=== PATIENT | female | born 1935 | race Caucasian/White ===

== ENCOUNTER 2019-05-28 14:41 | Inpatient (IN) | payer MEDICARE ==
[2019-05-28] MEDS: Ferrous Sulfate 325 MG TAB PO SCH (18:15)
--- NOTE | 2019-05-28 19:52 | HP ---
PRIMARY CARE PHYSICIAN: Out of town. ORTHO: Dr. Lugo in orthopedic. REASON FOR ADMISSION: [facility] for rehab after recent surgery. HISTORY OF PRESENT ILLNESS: Ms. Lucio is an 84-year-old female, who had a recent right total knee replacement secondary to severe arthritis. The patient reports that she had been having issues with her right knee in a long time and with her last visit to her Orthopedic, she was told her knee has severe arthritis, recommending surgical management. The patient underwent right total knee replacement on 05/25/2019. Postoperative course was complicated with anemia secondary to postoperative blood loss. Per report, her hemoglobin fell to the level of 7.6 on postop day 1. She remained hemodynamically stable and symptom-free. She was started on iron supplement for repletion per report. She was reported to have good pain control from a block that was performed by Anesthesia. The block was removed on postoperative day 2. The patient was maintained on [place] and tramadol for pain control after the block was discontinued. Staff reports that the patient had desaturation of oxygen, which was deemed from [place] use, so she is currently taking tramadol at this time. The patient reports that she tramadol is helping control the pain somewhat. She was instructed to follow up with Ortho in 2 weeks time after the surgery. When evaluated, family consisting of the patient's spouse and daughter were present in the room. The patient was comfortably resting when seen. She reports no other issues at this time. She reports that she has started her physical therapy and occupational therapy postoperatively and had started to walk some. She reports pain mostly on walking. She takes Tramadol prn. PAST MEDICAL HISTORY: 1. Anxiety, depression. 2. Chronic arthritis. 3. Hypertension, dyslipidemia, decreased auditory acuity. 4. Normal nuclear study performed on 02/07/2015, which shows ejection fraction of 51% and a predominantly fixed defect involving the mid to apical anterior wall and no ischemia. 5. History of orthostasis, history of atrial tachycardia, LINQ in situ. 6. History of dry mouth and dry eyes. 7. CAD. 8. Hyperlipidemia. PAST SURGICAL HISTORY: 1. Distant history of appendectomy, cardiac catheterization on 05/19/2015, removal of LINQ implant by Dr. Ortiz. 2. History of syncopal episode. 3. Coronary artery bypass graft surgery. SOCIAL HISTORY: . Denies tobacco use. Denies alcohol or drug use. ALLERGIES: TO [facility] GIVING HER HYPOXIA, LISINOPRIL, METHOCARBAMOL, OMEPRAZOLE, PENICILLIN, RAMIPRIL, AND CODEINE. MEDICATIONS: 1. Aspirin 81 mg p.o. daily. 2. Atorvastatin 20 mg p.o. daily. 3. Calcium carbonate with vitamin D3 of 600/800 mg one tablet p.o. b.i.d. 4. Carboxymethylcellulose sodium 1 to 2 drops right eye t.i.d. 5. Clonazepam 0.5 mg p.o. daily and 1 mg p.o. at bedtime. 6. Ezetimibe 10 mg p.o. at bedtime. 7. Magnesium oxide 500 mg p.o. b.i.d. 8. Restasis 0.1 drop each eye b.i.d. 9. Tramadol 50 mg for mild pain and 100 mg for [id number]-es-rdytmi pain. REVIEW OF SYSTEMS: GENERAL: Reports general weakness. Denies fever, chills, loss of appetite, or fatigue. HEENT: Reports chronic dry eyes. No acute visual changes or hearing changes. RESPIRATORY: No shortness of breath, cough, bloody sputum production, or wheezing. CARDIO: Denies chest pain, dyspnea on exertion, or paroxysmal nocturnal dyspnea. GI: No nausea, vomiting, abdominal pain, diarrhea, or constipation. GENITOURINARY: No dysuria, hematuria, frequency, urgency, or incontinence. MUSCULOSKELETAL: Reports joint pains and swelling as per HPI. NEURO: No focal numbness. No focal weakness. No seizures, tics, or tremors. PSYCH: Reports anxiety/depression and insomnia. No hallucinations. No suicidal thoughts, ideations, or plans. SKIN: No rashes or other additions than postoperative site, no pruritus. PHYSICAL EXAMINATION: VITAL SIGNS: Blood pressure 137/58, pulse 75, temperature 100.8, respirations 16, and O2 sats 93% on room air. GENERAL: The patient is awake, alert, and oriented x3. Not in distress, comfortably lying in bed. HEENT: Normocephalic and atraumatic. PERRL. Intact EOM. Anicteric sclerae. Oral mucosa is moist. Hard of hearing. NECK: Supple. No LAD. Flat JVD. CHEST: Normal excursion. Clear to auscultation bilaterally. CARDIAC: RRR. Normal S1 and S2. No murmurs. ABDOMEN: Flat and soft. Normoactive bowel sounds. Nondistended, nontender. No rebound or guarding. Negative CVA tenderness bilaterally. EXTREMITIES: Right knee is mildly swollen. Postoperative site on the right anterior knee is intact, dry. Sutures are in place. No wound adhesions. No drainage. No exudates. [place] wound erythema and mild swelling were noted. Mild tender to touch. Not warm to touch. No bipedal edema. Peripheral pulses 2+ symmetrically. NEUROLOGIC: Nonfocal. DTRs 2+. Gait unsteady. PSYCH: Appears calm with appropriate demeanor and affect. ASSESSMENT AND PLAN: 1. Severe arthritis, status post right total knee replacement. 2. Anemia secondary to postoperative blood loss with latest hemoglobin of 7.5, hematocrit 26.4, on 05/27/2019 prior to discharge. 3. Deconditioning. 4. General weakness. 5. Unsteady gait. 6. Hypertension, dyslipidemia, anxiety, and depression. LABORATORY DATA: On 05/27/2019, WBC 7.9, hemoglobin 7.5, hematocrit 24.4, and platelets 167. Sodium 139, potassium 4.0, chloride 103, BUN 14, creatinine 0.7 , and GFR 85. PLAN: 1. The patient is admitted to [facility] for rehab. We will refer to PT and OT. 2. Current temperature is mildy elevated, patient is symptom-free. We will closely monitor. We will continue current medications as per list. 3. We will add iron supplement as it is not in the list. 4. I discussed the med reaction between tramadol and Effexor increasing risk of seizures. The patient reported allergy to codeine and intolerance to hydrocodone. She is apparently doing well with tramadol. Benefits outweigh the risks. There was no problem with previous use of tramadol and Effexor. 5. Routine blood work including serial CBC. 6. DVT prophylaxis with compression stockings. 7. Follow up with Dr. Lugo in 2 weeks. Staple removal with Ortho during the followup. 8. Further recommendations depending on the hospital course. CODE STATUS: The patient reports FULL CODE in the presence of her daughter and spouse, who concur stephanie patient's wishes. ESTIMATED LENGTH OF STAY: 2 to 3 weeks. Job ID: [id number] [facility]
[2019-05-28] MEDS: clonazePAM 1 MG TAB PO SCH (20:07)
[2019-05-28] MEDS: Calcium Carbonate + Vit D 1 TAB PO SCH (20:07)
[2019-05-28] MEDS: Ezetimibe 10 MG TAB PO SCH (20:08)
[2019-05-28] MEDS: Magnesium Oxide 400 MG TAB PO SCH (20:08)
[2019-05-28] MEDS: Acetaminophen 325 MG TAB PO PRN (20:09)
[2019-05-28] MEDS: traMADol HCl 50 MG TAB PO PRN (20:09)
[2019-05-28 20:56] LABS: Hemoglobin 6.9 g/dL (12.0-16.0); Mean Corpuscular Volume 96.6 fL (78.0-98.0); Mean Platelet Volume 8.9 fL (7.4-10.4); Platelet Count 195 thou/uL (130-400); RBC Distribution Width 12.5 % (11.5-14.5); Red Blood Cell (RBC) Count 2.38 mill/uL (4.20-5.40); White Blood Cell (WBC) Count 7.2 thou/uL (4.8-10.8)
[2019-05-28] MEDS ORDERED: CYCLOSPORINE 0.05% EA EYE SCH (21:00)
[2019-05-28] MEDS ORDERED: REFRESH CELLUVISC R EYE SCH (21:00)
[2019-05-28] MEDS ORDERED: Artificial Tear Sol 15 ML BOT EA EYE SCH (21:00)
[2019-05-28] MEDS ORDERED: cycloSPORINE 0.05% Ophthalmic Droperette EA EYE SCH (21:00)
[2019-05-28] MEDS: RESTASIS R EYE SCH (21:08)
[2019-05-28 21:15] LABS: Hypochromia SLIGHT = 6-15 cells (100X) (0-5/hpf); MDiff Complete? YES; Platelet Morphology Comment Appears Adequate
[2019-05-28 22:27] LABS: Bilirubin Negative (Negative); Blood, Urine Trace (Negative); Clarity Clear (Clear); Glucose, Urine (Dipstick) Negative (Negative); Leukocyte Trace (Negative); Nitrite Negative (Negative); Protein, Urine (Dipstick) Negative (Neg-Trace); Urobilinogen 0.2 mg/dL (Less than 2)
[2019-05-28 22:35] LABS: Bacteria/HPF Rare-Few HPF (None Seen); Mucous/LPF None Seen LPF (<2+); RBC/HPF 0-3 HPF (0-3); Renal Epithelial 0-3 HPF (None Seen); Squamous Epithelial 0-3 HPF (0-3); WBC/HPF 0-3 HPF (0-3)
--- NOTE | 2019-05-28 23:33 | RAD ---
RADIOGRAPH CHEST 2 VIEW: DATE: 05/28/2019 TIME: 11:27 PM HISTORY: 84-year-old female with fever. COMPARISON: 12/24/2014 1 view study FINDINGS: Again noted are the signs of previous CABG. Hyperinflation consistent with COPD. Prominent interstiti al markings. Several old right rib fracture deformities. No pneumothorax or consolidation. No cardiomegaly. Lateral view shows mild blunting of the right posterior costophrenic angle. New mildly elevated right hemidiaphragm. IMPRESSION: 1. No evidence of pneumonia. 2. Tiny right pleural effusion. 3. Multiple old right rib fracture deformities. 4. Prior coronary artery bypass graft surgery.
[2019-05-29] MEDS ORDERED: diphenhydrAMINE 25 MG CAP PO SCH (00:30)
[2019-05-29] MEDS ORDERED: Furosemide 20 MG TAB PO SCH (00:30)
[2019-05-29] MEDS ORDERED: Acetaminophen 325 MG TAB PO SCH (00:30)
[2019-05-29] MEDS: Artificial Tear Sol 15 ML BOT EA EYE SCH ×3 (08:51→21:04)
[2019-05-29] MEDS: Aspirin 81 mg Enteric Coated Tablet PO SCH (08:52)
[2019-05-29] MEDS: Magnesium Oxide 400 MG TAB PO SCH ×2 (08:52→21:03)
[2019-05-29] MEDS: clonazePAM 0.5 MG TAB PO SCH (08:52)
[2019-05-29] MEDS: Atorvastatin Calcium 10 MG TAB PO SCH (08:52)
[2019-05-29] MEDS: Calcium Carbonate + Vit D 1 TAB PO SCH ×2 (08:52→21:04)
[2019-05-29] MEDS: Ferrous Sulfate 325 MG TAB PO SCH ×2 (08:52→17:30)
[2019-05-29] MEDS: RESTASIS R EYE SCH ×2 (08:53→21:04)
[2019-05-29] MEDS: Polyethylene Glycol 3350 17 GM Packet PO SCH (08:53)
[2019-05-29] MEDS ORDERED: CITRUCEL 500 MG PO SCH (09:00)
[2019-05-29] MEDS: traMADol HCl 50 MG TAB PO PRN ×3 (11:34→21:42)
[2019-05-29] MEDS ORDERED: [UNRECOGNIZED DRUG - OTHER] EA EYE PRN (11:56)
[2019-05-29 12:49] LABS: Hemoglobin 10.2 g/dL (12.0-16.0)
[2019-05-29] MEDS ORDERED: Milk Of Magnesia 30 ML UDCUP PO PRN (19:54)
[2019-05-29] MEDS: clonazePAM 1 MG TAB PO SCH (21:02)
[2019-05-29] MEDS: Ezetimibe 10 MG TAB PO SCH (21:03)
[2019-05-29] MEDS: Acetaminophen 325 MG TAB PO PRN (22:48)
[2019-05-30] MEDS: clonazePAM 0.5 MG TAB PO SCH (08:54)
[2019-05-30] MEDS: Calcium Carbonate + Vit D 1 TAB PO SCH ×2 (08:54→21:16)
[2019-05-30] MEDS: Atorvastatin Calcium 10 MG TAB PO SCH (08:54)
[2019-05-30] MEDS: Magnesium Oxide 400 MG TAB PO SCH ×2 (08:54→21:16)
[2019-05-30] MEDS: Ferrous Sulfate 325 MG TAB PO SCH ×2 (08:54→17:16)
[2019-05-30] MEDS: Aspirin 81 mg Enteric Coated Tablet PO SCH (08:54)
[2019-05-30] MEDS: Polyethylene Glycol 3350 17 GM Packet PO SCH (08:55)
[2019-05-30] MEDS: Metamucil PACK PO SCH (08:56)
[2019-05-30] MEDS: RESTASIS R EYE SCH ×2 (08:56→21:17)
[2019-05-30] MEDS: Artificial Tear Sol 15 ML BOT EA EYE SCH ×3 (08:57→21:16)
[2019-05-30] MEDS: ALENDRONATE 70 MG TAB PO SCH (08:57)
[2019-05-30] MEDS: traMADol HCl 50 MG TAB PO PRN ×2 (13:09→21:27)
[2019-05-30] MEDS: Acetaminophen 325 MG TAB PO PRN (19:21)
[2019-05-30] MEDS: Ezetimibe 10 MG TAB PO SCH (21:16)
[2019-05-30] MEDS: clonazePAM 1 MG TAB PO SCH (21:18)
[2019-05-31] MEDS: traMADol HCl 50 MG TAB PO PRN ×3 (04:02→20:47)
[2019-05-31] MEDS: Metamucil PACK PO SCH (08:19)
[2019-05-31] MEDS: Atorvastatin Calcium 10 MG TAB PO SCH (08:20)
[2019-05-31] MEDS: clonazePAM 0.5 MG TAB PO SCH (08:20)
[2019-05-31] MEDS: Aspirin 81 mg Enteric Coated Tablet PO SCH (08:20)
[2019-05-31] MEDS: Ferrous Sulfate 325 MG TAB PO SCH ×2 (08:20→16:46)
[2019-05-31] MEDS: Magnesium Oxide 400 MG TAB PO SCH ×2 (08:20→20:47)
[2019-05-31] MEDS: Calcium Carbonate + Vit D 1 TAB PO SCH ×2 (08:21→20:46)
[2019-05-31] MEDS: Polyethylene Glycol 3350 17 GM Packet PO SCH (08:21)
[2019-05-31] MEDS: Artificial Tear Sol 15 ML BOT EA EYE SCH ×3 (08:21→20:46)
[2019-05-31] MEDS: RESTASIS R EYE SCH ×2 (08:21→20:48)
[2019-05-31] MEDS ORDERED: cycloSPORINE 0.05% Ophthalmic Droperette R EYE SCH (09:00)
[2019-05-31] MEDS: clonazePAM 1 MG TAB PO SCH (20:46)
[2019-05-31] MEDS: Ezetimibe 10 MG TAB PO SCH (20:47)
[2019-05-31] MEDS: Acetaminophen 325 MG TAB PO PRN (23:02)
[2019-06-01] MEDS: traMADol HCl 50 MG TAB PO PRN ×4 (03:33→20:43)
[2019-06-01] MEDS: Atorvastatin Calcium 10 MG TAB PO SCH (08:19)
[2019-06-01] MEDS: Ferrous Sulfate 325 MG TAB PO SCH ×2 (08:19→16:40)
[2019-06-01] MEDS: Aspirin 81 mg Enteric Coated Tablet PO SCH (08:19)
[2019-06-01] MEDS: Magnesium Oxide 400 MG TAB PO SCH ×2 (08:19→20:45)
[2019-06-01] MEDS: clonazePAM 0.5 MG TAB PO SCH (08:19)
[2019-06-01] MEDS: Calcium Carbonate + Vit D 1 TAB PO SCH ×2 (08:19→20:45)
[2019-06-01] MEDS: Polyethylene Glycol 3350 17 GM Packet PO SCH (08:20)
[2019-06-01] MEDS: Artificial Tear Sol 15 ML BOT EA EYE SCH ×3 (08:22→20:48)
[2019-06-01] MEDS: RESTASIS R EYE SCH ×2 (08:24→20:49)
[2019-06-01] MEDS: Metamucil PACK PO SCH (08:58)
[2019-06-01] MEDS: clonazePAM 1 MG TAB PO SCH (20:44)
[2019-06-01] MEDS: Ezetimibe 10 MG TAB PO SCH (20:45)
[2019-06-02] MEDS: traMADol HCl 50 MG TAB PO PRN ×2 (07:58→12:01)
[2019-06-02] MEDS: Calcium Carbonate + Vit D 1 TAB PO SCH ×2 (08:42→20:46)
[2019-06-02] MEDS: clonazePAM 0.5 MG TAB PO SCH (08:42)
[2019-06-02] MEDS: Aspirin 81 mg Enteric Coated Tablet PO SCH (08:42)
[2019-06-02] MEDS: Metamucil PACK PO SCH (08:42)
[2019-06-02] MEDS: Ferrous Sulfate 325 MG TAB PO SCH ×2 (08:42→16:58)
[2019-06-02] MEDS: Magnesium Oxide 400 MG TAB PO SCH ×2 (08:44→20:46)
[2019-06-02] MEDS: Artificial Tear Sol 15 ML BOT EA EYE SCH ×3 (08:59→20:48)
[2019-06-02] MEDS: RESTASIS R EYE SCH ×2 (08:59→20:49)
[2019-06-02] MEDS: Ezetimibe 10 MG TAB PO SCH (20:46)
[2019-06-02] MEDS: Atorvastatin Calcium 10 MG TAB PO SCH (20:46)
[2019-06-02] MEDS: clonazePAM 1 MG TAB PO SCH (20:48)
[2019-06-03] MEDS: traMADol HCl 50 MG TAB PO PRN ×3 (04:18→21:10)
[2019-06-03] MEDS: Metamucil PACK PO SCH (08:18)
[2019-06-03] MEDS: Artificial Tear Sol 15 ML BOT EA EYE SCH ×3 (08:19→21:08)
[2019-06-03] MEDS: Aspirin 81 mg Enteric Coated Tablet PO SCH (08:19)
[2019-06-03] MEDS: Magnesium Oxide 400 MG TAB PO SCH ×2 (08:20→21:09)
[2019-06-03] MEDS: Calcium Carbonate + Vit D 1 TAB PO SCH ×2 (08:22→21:08)
[2019-06-03] MEDS: clonazePAM 0.5 MG TAB PO SCH (08:23)
[2019-06-03] MEDS: RESTASIS R EYE SCH ×2 (08:23→21:14)
[2019-06-03] MEDS: Ferrous Sulfate 325 MG TAB PO SCH ×2 (08:23→17:27)
[2019-06-03] MEDS: Ezetimibe 10 MG TAB PO SCH (21:08)
[2019-06-03] MEDS: clonazePAM 1 MG TAB PO SCH (21:08)
[2019-06-03] MEDS: Atorvastatin Calcium 10 MG TAB PO SCH (21:08)
[2019-06-04] MEDS: Calcium Carbonate + Vit D 1 TAB PO SCH ×2 (08:22→21:18)
[2019-06-04] MEDS: Ferrous Sulfate 325 MG TAB PO SCH ×2 (08:22→17:24)
[2019-06-04] MEDS: Magnesium Oxide 400 MG TAB PO SCH ×2 (08:22→21:19)
[2019-06-04] MEDS: RESTASIS R EYE SCH ×2 (08:23→21:29)
[2019-06-04] MEDS: clonazePAM 0.5 MG TAB PO SCH (08:23)
[2019-06-04] MEDS: Metamucil PACK PO SCH (08:23)
[2019-06-04] MEDS: Aspirin 81 mg Enteric Coated Tablet PO SCH (08:23)
[2019-06-04] MEDS: Artificial Tear Sol 15 ML BOT EA EYE SCH ×3 (08:24→21:17)
[2019-06-04] MEDS: traMADol HCl 50 MG TAB PO PRN ×2 (13:06→19:30)
[2019-06-04] MEDS: clonazePAM 1 MG TAB PO SCH (21:18)
[2019-06-04] MEDS: Doxycycline 100 MG CAP PO SCH (21:18)
[2019-06-04] MEDS: Sulfameth/Trimethoprim DS 800-160mg TAB PO SCH (21:18)
[2019-06-04] MEDS: Ezetimibe 10 MG TAB PO SCH (21:18)
[2019-06-04] MEDS: Atorvastatin Calcium 10 MG TAB PO SCH (21:18)
[2019-06-05] MEDS: traMADol HCl 50 MG TAB PO PRN ×4 (04:15→21:07)
[2019-06-05] MEDS: Ferrous Sulfate 325 MG TAB PO SCH ×2 (08:57→16:34)
[2019-06-05] MEDS: Sulfameth/Trimethoprim DS 800-160mg TAB PO SCH ×2 (08:57→21:07)
[2019-06-05] MEDS: clonazePAM 0.5 MG TAB PO SCH (08:57)
[2019-06-05] MEDS: Metamucil PACK PO SCH (08:57)
[2019-06-05] MEDS: Aspirin 81 mg Enteric Coated Tablet PO SCH (08:57)
[2019-06-05] MEDS: Calcium Carbonate + Vit D 1 TAB PO SCH ×2 (08:57→21:05)
[2019-06-05] MEDS: Magnesium Oxide 400 MG TAB PO SCH ×2 (08:57→21:06)
[2019-06-05] MEDS: Doxycycline 100 MG CAP PO SCH ×2 (08:57→21:06)
[2019-06-05] MEDS: RESTASIS R EYE SCH ×2 (08:58→21:07)
[2019-06-05] MEDS: Artificial Tear Sol 15 ML BOT EA EYE SCH ×3 (08:58→21:05)
[2019-06-05] MEDS: clonazePAM 1 MG TAB PO SCH (21:05)
[2019-06-05] MEDS: Atorvastatin Calcium 10 MG TAB PO SCH (21:05)
[2019-06-05] MEDS: Ezetimibe 10 MG TAB PO SCH (21:06)
[2019-06-06] MEDS ORDERED: ALENDRONATE 70 MG TAB PO SCH (06:00)
[2019-06-06] MEDS: ALENDRONATE 70 MG TAB PO SCH (07:11)
[2019-06-06] MEDS: Calcium Carbonate + Vit D 1 TAB PO SCH ×2 (08:10→21:09)
[2019-06-06] MEDS: Sulfameth/Trimethoprim DS 800-160mg TAB PO SCH ×2 (08:10→21:10)
[2019-06-06] MEDS: Doxycycline 100 MG CAP PO SCH ×2 (08:10→21:08)
[2019-06-06] MEDS: Artificial Tear Sol 15 ML BOT EA EYE SCH ×3 (08:10→21:14)
[2019-06-06] MEDS: Magnesium Oxide 400 MG TAB PO SCH ×2 (08:10→21:07)
[2019-06-06] MEDS: clonazePAM 0.5 MG TAB PO SCH (08:10)
[2019-06-06] MEDS: Aspirin 81 mg Enteric Coated Tablet PO SCH (08:11)
[2019-06-06] MEDS: RESTASIS R EYE SCH ×2 (08:11→21:11)
[2019-06-06] MEDS: Ferrous Sulfate 325 MG TAB PO SCH ×2 (08:11→16:57)
[2019-06-06] MEDS: traMADol HCl 50 MG TAB PO PRN ×3 (08:11→21:09)
[2019-06-06] MEDS: Metamucil PACK PO SCH (08:11)
[2019-06-06] MEDS: Triple Antibiotic Oint 1 GM Packet TOP SCH ×2 (13:53→21:16)
[2019-06-06] MEDS: Acetaminophen 325 MG TAB PO PRN (13:56)
[2019-06-06] MEDS: Atorvastatin Calcium 10 MG TAB PO SCH (21:07)
[2019-06-06] MEDS: Ezetimibe 10 MG TAB PO SCH (21:07)
[2019-06-06] MEDS: clonazePAM 1 MG TAB PO SCH (21:10)
[2019-06-06] MEDS ORDERED: Lactase 9,000 UNIT CHEWABLE TAB PO PRN (23:25)
[2019-06-07] MEDS: Magnesium Oxide 400 MG TAB PO SCH ×2 (08:42→21:01)
[2019-06-07] MEDS: Ferrous Sulfate 325 MG TAB PO SCH ×2 (08:42→17:08)
[2019-06-07] MEDS: Doxycycline 100 MG CAP PO SCH ×2 (08:43→21:00)
[2019-06-07] MEDS: Sulfameth/Trimethoprim DS 800-160mg TAB PO SCH ×2 (08:43→21:00)
[2019-06-07] MEDS: clonazePAM 0.5 MG TAB PO SCH (08:43)
[2019-06-07] MEDS: Calcium Carbonate + Vit D 1 TAB PO SCH ×2 (08:43→21:02)
[2019-06-07] MEDS: Triple Antibiotic Oint 1 GM Packet TOP SCH ×3 (08:43→21:00)
[2019-06-07] MEDS: Aspirin 81 mg Enteric Coated Tablet PO SCH (08:43)
[2019-06-07] MEDS: Metamucil PACK PO SCH (08:44)
[2019-06-07] MEDS: NATURAL TEARS EA EYE SCH ×3 (08:44→21:06)
[2019-06-07] MEDS: RESTASIS R EYE SCH ×2 (08:44→21:00)
[2019-06-07] MEDS: traMADol HCl 50 MG TAB PO PRN (18:20)
[2019-06-07] MEDS: Atorvastatin Calcium 10 MG TAB PO SCH (21:01)
[2019-06-07] MEDS: Ezetimibe 10 MG TAB PO SCH (21:02)
[2019-06-07] MEDS: clonazePAM 1 MG TAB PO SCH (21:02)
[2019-06-08] MEDS: traMADol HCl 50 MG TAB PO PRN ×2 (07:53→12:24)
[2019-06-08] MEDS: Aspirin 81 mg Enteric Coated Tablet PO SCH (07:55)
[2019-06-08] MEDS: Metamucil PACK PO SCH (07:55)
[2019-06-08] MEDS: Doxycycline 100 MG CAP PO SCH ×2 (07:55→21:54)
[2019-06-08] MEDS: Calcium Carbonate + Vit D 1 TAB PO SCH ×2 (07:55→21:46)
[2019-06-08] MEDS: Magnesium Oxide 400 MG TAB PO SCH ×2 (07:55→21:55)
[2019-06-08] MEDS: Triple Antibiotic Oint 1 GM Packet TOP SCH ×3 (07:55→21:56)
[2019-06-08] MEDS: Ferrous Sulfate 325 MG TAB PO SCH ×2 (07:56→16:49)
[2019-06-08] MEDS: Sulfameth/Trimethoprim DS 800-160mg TAB PO SCH ×2 (07:56→21:46)
[2019-06-08] MEDS: clonazePAM 0.5 MG TAB PO SCH (07:56)
[2019-06-08] MEDS: RESTASIS R EYE SCH ×2 (07:57→22:01)
[2019-06-08] MEDS: NATURAL TEARS EA EYE SCH ×3 (07:58→18:27)
[2019-06-08] MEDS: Atorvastatin Calcium 10 MG TAB PO SCH (21:45)
[2019-06-08] MEDS: Venlafaxine HCl 37.5 MG TAB PO SCH (21:47)
[2019-06-08] MEDS: clonazePAM 1 MG TAB PO SCH (21:47)
[2019-06-08] MEDS: Ezetimibe 10 MG TAB PO SCH (21:54)
[2019-06-09] MEDS: Doxycycline 100 MG CAP PO SCH ×2 (08:24→20:46)
[2019-06-09] MEDS: clonazePAM 0.5 MG TAB PO SCH (08:24)
[2019-06-09] MEDS: Venlafaxine HCl 37.5 MG TAB PO SCH ×2 (08:24→20:46)
[2019-06-09] MEDS: Magnesium Oxide 400 MG TAB PO SCH ×2 (08:25→20:46)
[2019-06-09] MEDS: Calcium Carbonate + Vit D 1 TAB PO SCH ×2 (08:25→20:46)
[2019-06-09] MEDS: Triple Antibiotic Oint 1 GM Packet TOP SCH (08:25)
[2019-06-09] MEDS: Aspirin 81 mg Enteric Coated Tablet PO SCH (08:25)
[2019-06-09] MEDS: Ferrous Sulfate 325 MG TAB PO SCH ×2 (08:25→16:50)
[2019-06-09] MEDS: Sulfameth/Trimethoprim DS 800-160mg TAB PO SCH ×2 (08:25→20:45)
[2019-06-09] MEDS: Metamucil PACK PO SCH (08:26)
[2019-06-09] MEDS: RESTASIS R EYE SCH ×2 (08:26→20:52)
[2019-06-09] MEDS: NATURAL TEARS EA EYE SCH ×3 (08:26→20:52)
[2019-06-09] MEDS: traMADol HCl 50 MG TAB PO PRN (16:50)
[2019-06-09] MEDS: Atorvastatin Calcium 10 MG TAB PO SCH (20:45)
[2019-06-09] MEDS: Ezetimibe 10 MG TAB PO SCH (20:46)
[2019-06-09] MEDS: clonazePAM 1 MG TAB PO SCH (20:52)
[2019-06-10] MEDS: Calcium Carbonate + Vit D 1 TAB PO SCH ×2 (08:36→20:27)
[2019-06-10] MEDS: clonazePAM 0.5 MG TAB PO SCH (08:36)
[2019-06-10] MEDS: Doxycycline 100 MG CAP PO SCH ×2 (08:36→20:27)
[2019-06-10] MEDS: Venlafaxine HCl 37.5 MG TAB PO SCH ×2 (08:36→20:28)
[2019-06-10] MEDS: Metamucil PACK PO SCH (08:37)
[2019-06-10] MEDS: Magnesium Oxide 400 MG TAB PO SCH ×2 (08:37→20:26)
[2019-06-10] MEDS: RESTASIS R EYE SCH ×2 (08:37→20:28)
[2019-06-10] MEDS: Sulfameth/Trimethoprim DS 800-160mg TAB PO SCH ×2 (08:37→20:27)
[2019-06-10] MEDS: Ferrous Sulfate 325 MG TAB PO SCH ×2 (08:37→16:57)
[2019-06-10] MEDS: Aspirin 81 mg Enteric Coated Tablet PO SCH (08:37)
[2019-06-10] MEDS: NATURAL TEARS EA EYE SCH ×3 (08:37→20:28)
[2019-06-10] MEDS ORDERED: Ondansetron ODT 4 MG TAB PO PRN (10:49)
[2019-06-10] MEDS: traMADol HCl 50 MG TAB PO PRN (11:21)
[2019-06-10 13:13] VITALS: BMI 20.9
[2019-06-10] MEDS: clonazePAM 1 MG TAB PO SCH (20:25)
[2019-06-10] MEDS: Atorvastatin Calcium 10 MG TAB PO SCH (20:27)
[2019-06-10] MEDS: Ezetimibe 10 MG TAB PO SCH (20:27)
[2019-06-11] MEDS: Magnesium Oxide 400 MG TAB PO SCH ×2 (08:14→20:52)
[2019-06-11] MEDS: Venlafaxine HCl 37.5 MG TAB PO SCH ×2 (08:14→20:51)
[2019-06-11] MEDS: Ferrous Sulfate 325 MG TAB PO SCH ×2 (08:14→17:20)
[2019-06-11] MEDS: Aspirin 81 mg Enteric Coated Tablet PO SCH (08:14)
[2019-06-11] MEDS: Calcium Carbonate + Vit D 1 TAB PO SCH ×2 (08:14→20:52)
[2019-06-11] MEDS: Sulfameth/Trimethoprim DS 800-160mg TAB PO SCH ×2 (08:14→20:52)
[2019-06-11] MEDS: clonazePAM 0.5 MG TAB PO SCH (08:14)
[2019-06-11] MEDS: Doxycycline 100 MG CAP PO SCH ×2 (08:14→20:50)
[2019-06-11] MEDS: NATURAL TEARS EA EYE SCH ×3 (08:15→20:53)
[2019-06-11] MEDS: RESTASIS R EYE SCH ×2 (08:15→20:53)
[2019-06-11] MEDS: Metamucil PACK PO SCH (08:16)
[2019-06-11] MEDS: traMADol HCl 50 MG TAB PO PRN (09:14)
[2019-06-11 19:00] VITALS: BP 130/60; TEMP 98.9
[2019-06-11] MEDS: clonazePAM 1 MG TAB PO SCH (20:51)
[2019-06-11] MEDS: Atorvastatin Calcium 10 MG TAB PO SCH (20:52)
[2019-06-11] MEDS: Ezetimibe 10 MG TAB PO SCH (20:52)
--- NOTE | 2019-06-12 15:00 | DIS ---
DATE OF ADMISSION: 05/28/2019 DATE OF DISCHARGE: 06/12/2019 PRIMARY CARE PHYSICIAN: Dr. Asher Valdovinos. ORTHOPEDICS: Dr. Lugo. REASON FOR ADMISSION: Skilled rehab in [facility] after recent surgery. DIAGNOSES: 1. Severe arthritis of the right knee, status post right total knee replacement on 05/25/2019. 2. Anemia secondary to postoperative blood loss, requiring blood transfusion. Most recent hemoglobin of 10.2 and hematocrit 34.3 prior to admission on 05/29/2019. 3. Postoperative wound infection in the right knee, resolving. 4. Deconditioning secondary to general weakness, improved. 5. Unsteady gait. SECONDARY DIAGNOSES: 1. Hypertension. 2. Dyslipidemia. 3. Anxiety, depression. 4. Coronary artery disease, status post bypass graft surgery. MEDICATIONS: 1. Doxycycline 100 mg p.o. b.i.d. for three more days. 2. Bactrim DS one tablet p.o. b.i.d. for three more days. 3. [place] 5/325 mg p.o. q.6 hours p.r.n. 4. Ferrous sulfate 325 mg p.o. b.i.d. 5. Atorvastatin 20 mg p.o. at bedtime. 6. Calcium carbonate with vitamin D 1 tablet p.o. b.i.d. 7. Clonazepam 0.5 mg p.o. q.a.m. and 1 mg p.o. at bedtime. 8. Aspirin 81 mg p.o. daily. 9. Acetaminophen 650 mg p.o. q.6 hours p.r.n. for mild pain. 10. Zetia 10 mg p.o. at bedtime. 11. Lactaid 9000 units p.o. p.r.n. 12. Magnesium oxide 500 mg p.o. b.i.d. 13. Venlafaxine 75 mg p.o. b.i.d. 14. Continue all current home medications of eyedrops as directed. DIET: Regular. ACTIVITY: To use rolling walker at all times. Fall precautions. FOLLOWUP: 1. Follow up with PCP, Dr. Valdovinos in 1 week, sooner with concern. 2. Follow up with Ortho as previously scheduled. 3. Refer to home health of choice for fdc, PT, OT eval and treat. HISTORY OF THE PRESENT ILLNESS AND HOSPITAL COURSE: Ms. Lucio is a very pleasant 84-year-old female with significant history of severe arthritis of the right knee. She underwent right total knee replacement for this on 05/25/[address] Lugo at [facility]. The postoperative course was complicated with anemia secondary to acute postoperative blood loss. Her hemoglobin fell to the level of 7.6 on postop day 1, but the patient remained hemodynamically stable and symptom-free. She was started on iron supplement orally at that time. The patient was then transferred to [facility] on 05/28/2019 for skilled rehab. Her admitting hemoglobin at that time was 6.9 with hematocrit of 23.0. The patient reports dizziness and shortness of breath upon ambulation or in a standing position. The patient then received 2 units of packed RBC. Repeat hemoglobin posttransfusion on 05/29/2019 showed improved hemoglobin to 10.2 with hematocrit of 34.3. The patient's above symptoms markedly improved. She was then maintained on iron supplement b.i.d. Rehab course was likewise complicated with intermittent temperature spikes. Her urine culture and blood cultures were negative. Her chest x-ray was unremarkable. The patient then developed mild swelling and erythema of the right knee postoperative site. When she followed up with Ortho, she was started on oral antibiotic for possible wound infection. The patient tolerated doxycycline and Bactrim DS. She then followed up with Dr. Lugo on 06/11/2019, and jonnie were removed without complications. The patient was then cleared by Ortho to be discharged home. Prior to discharge, the patient was walking 400 feet using rolling walker, but remains slow andrew, decreased balance, and strength. She is able to perform functional mobility with standby assist with all transfers. The patient is deemed to benefit for further home therapy via Home Health. On , the patient was adamant to go home. Her is her primary [employer] plans staff officer, and is comfortable to take care of the patient at home at this point. The patient has been febrile free prior to discharge, and is being hemodynamically stable to go home. Vital signs prior to discharge; blood pressure 130/60, temperature 98.9, pulse 74, respirations 16, O2 sats 95% on room air. Weight 118 pounds and 6 ounces. Height 5 feet 3 inches. Job ID: [id number]
== END 2019-06-12 07:45 | disposition home or self-care (01) | DRG 560 ==
LOC: MADMS 14:47
PROVIDERS: ADMIT Family Medicine; ATTEND Family Medicine
PROC: 30233N1 Transfusion of Nonautologous Red Blood Cells into Peripheral Vein, Percutaneous Approach (ICD-10-PCS; principal; 2019-05-29)
DX: Z47.1 Aftercare following joint replacement surgery (principal); D62 Acute posthemorrhagic anemia; T81.49XA Infection following a procedure, other surgical site, initial encounter; Z96.651 Presence of right artificial knee joint; F41.9 Anxiety disorder, unspecified; F32.9 Major depressive disorder, single episode, unspecified; I10 Essential (primary) hypertension; E78.5 Hyperlipidemia, unspecified; I25.10 Atherosclerotic heart disease of native coronary artery without angina pectoris; Z95.1 Presence of aortocoronary bypass graft; Z90.49 Acquired absence of other specified parts of digestive tract; Z79.82 Long term (current) use of aspirin; Z88.0 Allergy status to penicillin; Z79.899 Other long term (current) drug therapy; R53.81 Other malaise; R53.1 Weakness
CPT/HCPCS: 36415; 36430; 71046; 81003; 81015; 85007; 85027; 86850; 86900; 86901; 87040; 87086; P9016; Q0163